=== PATIENT | female | born 1960 | race Caucasian/White ===

== ENCOUNTER → 2017-02-21 | Outpatient (CLI) | payer BC ==
[~2017-02-21] MED LIST: None per pt
== END ==
LOC: STAR 14:26
PROVIDERS: ATTEND Orthopaedic Surgery
DX: Z02.9 Encounter for administrative examinations, unspecified (principal)

== ENCOUNTER 2017-03-08 08:07 | Day surgery (SDC) | payer BC ==
[~2017-03-08] VITALS: Ht 172.7 cm; Wt 76.0 kg
[~2017-03-08 08:07] MED LIST changes: +BUPIVACAINE/PF 0.5% ONE
[2017-03-08] MEDS ORDERED: FENTANYL PF 250 MCG/5ML ONE (09:23)
[2017-03-08] MEDS ORDERED: MIDAZOLAM 1 MG/ML, 2ML ONE (09:23)
[2017-03-08] MEDS ORDERED: LACTATED RINGERS 1,000 ML IV SCH (10:09)
[2017-03-08] MEDS ORDERED: DEXAMETHASONE 4 MG/ML, 1ML ONE (10:32)
[2017-03-08] MEDS ORDERED: ONDANSETRON 2MG/ML, 2ML ONE (10:32)
[2017-03-08] MEDS ORDERED: METOCLOPRAMIDE 5 MG/ML, 2ML ONE (10:32)
[2017-03-08] MEDS ORDERED: CEFAZOLIN 1,000 MG ONE (10:32)
[2017-03-08] MEDS ORDERED: SUCCINYLCHOLINE 20 MG/ML, 10ML ONE (10:32)
[2017-03-08] MEDS ORDERED: PROPOFOL 10 MG/ML, 20ML ONE (10:32)
[2017-03-08] MEDS ORDERED: ALBUTEROL/IPRATROPIUM 2.5MG/0.5MG, 3 ML NPPB PRN (11:00)
[2017-03-08] MEDS ORDERED: MIDAZOLAM 1 MG/ML, 2ML IV PRN (11:00)
[2017-03-08] MEDS ORDERED: ACETAMINOPHEN 325 MG TABLET PO PRN (11:00)
[2017-03-08] MEDS ORDERED: FENTANYL PF 100 MCG/2ML IV PRN (11:00)
[2017-03-08] MEDS ORDERED: MEPERIDINE/PF 25MG/0.5ML IVPush PRN (11:00)
[2017-03-08] MEDS ORDERED: OXYcodone 5 MG/5 ML ORAL.SOL UDC PO PRN (11:00)
[2017-03-08] MEDS ORDERED: PROMETHAZINE 25 MG/ML, 1ML IV PRN (11:00)
[2017-03-08] MEDS ORDERED: LABETALOL 5MG/ML, 20ML IV PRN (11:00)
[2017-03-08] MEDS ORDERED: ONDANSETRON 2MG/ML, 2ML IVPush PRN (11:00)
[2017-03-08] MEDS ORDERED: METOCLOPRAMIDE 5 MG/ML, 2ML IV PRN (11:00)
[2017-03-08] MEDS ORDERED: HYDROmorphone 1 MG/ML, 1ML IV PRN (11:00)
== END 2017-03-08 16:00 | disposition home or self-care (01) ==
LOC: OUT 08:07
PROVIDERS: ATTEND Orthopaedic Surgery
DX: S86.312A Strain of muscle(s) and tendon(s) of peroneal muscle group at lower leg level, left leg, initial encounter (principal); S93.492A Sprain of other ligament of left ankle, initial encounter; M24.672 Ankylosis, left ankle; M65.872 Other synovitis and tenosynovitis, left ankle and foot; M25.872 Other specified joint disorders, left ankle and foot; M25.372 Other instability, left ankle; X58.XXXA Exposure to other specified factors, initial encounter; Y93.9 Activity, unspecified; Y92.9 Unspecified place or not applicable; Y99.9 Unspecified external cause status
CPT/HCPCS: 27695; 28200; 28315; 29898; 88304; C1713; J0330; J0690; J1100; J2250; J2405; J2704; J2765; J3010; J3490; J7120